=== PATIENT | male | born 1995 | race Caucasian/White ===

== ENCOUNTER 2020-09-11 10:41 | Emergency (ER) | payer OTHER ==
[~2020-09-11] VITALS: Ht 175.3 cm; Wt 82.0 kg
--- NOTE | 2020-09-11 11:46 | REP ---
INDICATION: pain. COMPARISON: None. TECHNIQUE: High-resolution bilateral scrotal sonography with Doppler. FINDINGS: High-resolution scanning demonstrates normal homogeneous testicular parenchyma bilaterally. No intratesticular mass lesion is observed on either side. Testicular Doppler flow is present bilaterally. Resistive indices are normal, 0.59 on the right and 0.50 on the left. There is no evidence of hydrocele or varicocele. There is a 0.8 cm epididymal cyst on the left. Epididymal structures are otherwise unremarkable. IMPRESSION: 0.8 cm left-sided epididymal cyst. Otherwise normal high-resolution scrotal sonography. Doppler flow is intact bilaterally. <Electronically signed by Jett Knox > 09/11/20 [id number]
[2020-09-11 12:48] VITALS: BP 133/67
[2020-09-11] MEDS ORDERED: IBUP-1022 PO (12:54)
[2020-09-11 13:05] LABS: CHLAMYDIA DNA AMPLIFICATION NEGATIVE (NEGATIVE); GC DNA AMPLIFICATION NEGATIVE (NEGATIVE)
--- NOTE | 2020-09-14 11:12 | ED PDOC ---
Post-Departure Follow-Up ft aftab martino and dr gallagher faxed formal report of scrotal us for fu Ashanti Manley MD Sep 14, 2020 11:12
== END 2020-09-11 13:05 | disposition home or self-care (01) ==
LOC: M ED 10:41
DX: N50.811 Right testicular pain (principal)